=== PATIENT | female | born 1990 | race Caucasian/White ===

== ENCOUNTER 2019-01-13 16:01 | Outpatient (REF) | payer MEDICAID, SELFPAY ==
[2019-01-17 13:33] LABS: Chlamydia Result Negative; GC Result Negative; Specimen Description CERVIX
== END 2019-01-13 16:21 ==
LOC: NCHCN 16:01
PROVIDERS: PCP Family Medicine; Visit Provider Nurse Practitioner Family
DX: Z11.3 Encounter for screening for infections with a predominantly sexual mode of transmission (principal); Z72.89 Other problems related to lifestyle; Z68.42 Body mass index [BMI] 45.0-49.9, adult
CPT/HCPCS: 87491; 87591

== ENCOUNTER 2019-01-14 09:04 | Outpatient (REF) | payer MEDICAID, SELFPAY ==
--- NOTE | 2019-01-13 14:45 | PAPFT_PTH ---
PATIENT: Jackie Moraes LOC: NCN #:[id number] AGE/SX: 28/F ROOM: RE01/14/[address]: Laura Carrasquillo : 1990 BED: DIS: 01/14/2019 SPEC #: [id number] RECD: 01/14/19 12:56 STATUS: ANDREA TRAVIS #: [id number] VANITA: 01/13/19 14:[address]: Laura Carrasquillo DEPT: [facility] Cytology RECD BY: Leilani Lopez ENTERED: 01/14/19 12:57 SP TYPE: PAPFT OTHR DR: Samantha Culver Tissues: 1 - CX/ENDOCX FOR PAP SMEARS Procedures: PAP THIN PREP/UVM Screening Comments: [id number]
== END 2019-01-14 09:24 ==
LOC: NCHCN 09:04
PROVIDERS: PCP Family Medicine; Visit Provider Nurse Practitioner Family
DX: Z12.4 Encounter for screening for malignant neoplasm of cervix (principal); Z00.00 Encounter for general adult medical examination without abnormal findings
CPT/HCPCS: 88142

== ENCOUNTER 2020-02-15 19:13 | Outpatient (REF) | payer MEDICAID, SELFPAY ==
[2020-02-17 10:32] LABS: Syphilis Serology (RPR) Negative (Negative)
[2020-02-17 11:38] LABS: HIV-1/2 Ag & Ab Screen Negative (Negative)
[2020-02-17 11:39] LABS: Hepatitis C Ab w Rflx HCV PCR Negative (Negative)
[2020-02-17 14:51] LABS: Chlamydia Result Negative (Negative); GC Result Negative (Negative)
[2020-02-17 16:47] LABS: Anion Gap 10.1 mmol/L (3-11); BUN 11 mg/dL (7-18); CO2 25.9 mmol/L (21.0-32.0); CREATININE 0.95 mg/dL (0.55-1.02); Calcium 9.4 mg/dL (8.5-10.1); Calculated LDL 143 mg/dL (<100); Chloride 103 mmol/L (98-107); Cholesterol 207 mg/dL (<200); Glucose 82 mg/dL (74-106); HDL Cholesterol 40 mg/dL (40-60); Potassium 4.5 mmol/L (3.5-5.1); Sodium 139 mmol/L (136-145); Triglyceride 122 mg/dL (<150)
== END 2020-02-15 19:33 ==
LOC: NCHCN 19:13
PROVIDERS: PCP Family Medicine; Visit Provider Family Medicine
DX: Z11.3 Encounter for screening for infections with a predominantly sexual mode of transmission (principal); Z11.4 Encounter for screening for human immunodeficiency virus [HIV]; Z11.59 Encounter for screening for other viral diseases; Z68.42 Body mass index [BMI] 45.0-49.9, adult; Z13.220 Encounter for screening for lipoid disorders; Z13.228 Encounter for screening for other metabolic disorders
CPT/HCPCS: 80048; 80061; 86803; 87389; 87491; 87591; 86592

== ENCOUNTER 2020-04-06 21:42 | Outpatient (REF) | payer MEDICAID, SELFPAY ==
[2020-04-06 21:23] LABS: TSH (W/Ref FT4) 0.75 uIU/mL (0.36-3.74)
== END 2020-04-06 22:02 ==
LOC: NCHCN 21:42
PROVIDERS: PCP Family Medicine; Visit Provider Family Medicine
DX: R53.83 Other fatigue (principal); R63.5 Abnormal weight gain
CPT/HCPCS: 84443

== ENCOUNTER 2021-07-15 11:54 | Outpatient (REF) | payer MEDICAID, SELFPAY ==
[2021-07-17 12:45] LABS: COVID-19 RT-PCR UVMMC Result Negative (Negative)
== END 2021-07-15 11:55 | disposition home or self-care (01) ==
LOC: LBN 11:54
PROVIDERS: PCP Family Medicine; Visit Provider Physician Assistant
DX: Z20.822 Contact with and (suspected) exposure to COVID-19 (principal); J02.9 Acute pharyngitis, unspecified
CPT/HCPCS: U0003; 87070

== ENCOUNTER 2021-07-19 18:30 | Outpatient (REF) | payer MEDICAID, SELFPAY ==
[2021-07-21 12:43] LABS: COVID-19 RT-PCR UVMMC Result Negative (Negative)
== END 2021-07-19 18:31 | disposition home or self-care (01) ==
LOC: LBN 18:30
PROVIDERS: PCP Family Medicine; Visit Provider Nurse Practitioner Family
DX: Z20.822 Contact with and (suspected) exposure to COVID-19 (principal); J02.9 Acute pharyngitis, unspecified
CPT/HCPCS: U0003; 87070

== ENCOUNTER 2021-11-26 20:34 | Outpatient (REF) | payer MEDICAID, SELFPAY ==
[2021-11-26 21:35] LABS: Calculated LDL 135 mg/dL (<100); Cholesterol 204 mg/dL (<200); HDL Cholesterol 45 mg/dL (40-60); Triglyceride 122 mg/dL (<150)
== END 2021-11-26 20:35 | disposition home or self-care (01) ==
LOC: LBN 20:34
PROVIDERS: PCP Family Medicine; Visit Provider Psychiatry & Neurology Child & Adolescent Psychiatry
DX: F70 Mild intellectual disabilities (principal); E78.79 Other disorders of bile acid and cholesterol metabolism
CPT/HCPCS: 80061; 83036

== ENCOUNTER 2022-03-04 17:57 | Outpatient (REF) | payer MEDICAID, SELFPAY ==
--- NOTE | 2022-03-04 15:45 | PAPFT_PTH ---
PATIENT: Jackie Moraes LOC: [facility]#:[id number] AGE/SX: 31/F ROOM: RE03/04/[address]: Laura Carrasquillo : 1990 BED: DIS: 03/04/2022 SPEC #: [id number] RECD: 03/04/22 18:08 STATUS: ANDREA REOral #: [id number] VANITA: 03/04/22 15:[address]: Laura Carrasquillo DEPT: [facility] Cytology RECD BY: Leilani Lopez ENTERED: 03/04/22 18:09 SP TYPE: PAPFT OTHR DR: Samantha Culver Tissues: 1 - CX/ENDOCX FOR PAP SMEARS Procedures: PAP THIN PREP/UVM Screening HPV DNA PROBE Comments: [id number]
== END 2022-03-04 17:58 | disposition home or self-care (01) ==
LOC: NCHCN 17:57
PROVIDERS: PCP Family Medicine; Visit Provider Nurse Practitioner Family
DX: Z12.4 Encounter for screening for malignant neoplasm of cervix (principal); Z11.51 Encounter for screening for human papillomavirus (HPV)
CPT/HCPCS: 88142; 87624

== ENCOUNTER → 2022-06-12 03:11 | Outpatient (CLI) | payer MEDICARE, MEDICAID, SELFPAY ==
--- NOTE | 2022-06-12 13:33 | DI.MAMMO_ITS ---
Exam(s) MG MAMMO DIAGNOSTIC BI US BREAST LT LIMITED EXAM: US BREAST LT LIMITED CLINICAL HISTORY: UNSPECIFIED LUMP IN LT BREAST, UPPER INNER QUADRANT, N63.22 TECHNIQUE: Ultrasound performed using standard protocol. COMPARISON: No exams were available for comparison FINDINGS: Mammogram and left breast ultrasound are interpreted in conjunction. Patient reportedly has a palpab le mass of the upper inner quadrant of the right breast. The breasts heterogeneously dense. There is a 3 cm in diameter mass with lobulated border seen mammo graphically. This corresponds to a 3 cm in diameter mass seen on ultrasound which is predominantly h ypoechoic with heterogeneous internal echogenicity and irregular lobulated appearance. There is mild ly increased through transmission posteriorly .. No other mass identified mammographically or on ultrasound. IMPRESSION: Indeterminate 3 cm left breast mass, 12 o'clock position, 4 cm from the nipple. Biopsy recommended. Malignancy not excluded. BI-RADS Cat 4 - Suspicious Abnormality: Biopsy should be considered Breast Density - Category C - Heterogeneously dense DATA REPOSITORY:
== END ==
PROVIDERS: PCP Family Medicine; Visit Provider Family Medicine
DX: Z12.31 Encounter for screening mammogram for malignant neoplasm of breast (principal); R92.8 Other abnormal and inconclusive findings on diagnostic imaging of breast
CPT/HCPCS: 76642; 77062; 77066; G0279

== ENCOUNTER → 2022-06-17 14:31 | Outpatient (BNVA) | payer MEDICARE, MEDICAID, SELFPAY | PROVIDERS: PCP Nurse Practitioner Family; Referring Provider Family Medicine; Visit Provider Surgery | DX: D24.2 Benign neoplasm of left breast (principal); N63.20 Unspecified lump in the left breast, unspecified quadrant | CPT/HCPCS: 10005; 99203 ==

== ENCOUNTER 2022-06-17 15:24 | Outpatient (REF) | payer MEDICARE, MEDICAID, SELFPAY ==
--- NOTE | 2022-06-17 15:15 | BREAST_PTH ---
PATIENT: Jackie Moraes LOC: [facility] U#:[id number] AGE/SX: 31/F ROOM: RE06/17/[address]: Lizzeth Cross MD : 1990 BED: DIS: 06/17/2022 SPEC #: [id number] RECD: 06/17/22 16:27 STATUS: ANDREA REQ #: [id number] VANITA: 06/17/22 15:[address]: Lizzeth Cross DEPT: Surgical Specimen RECD BY: Leilani Lopez ENTERED: 06/17/22 16:28 SP TYPE: Breast OTHR DR: Laura Carrasquillo Tissues: 1 - BREAST BX NEEDLE Procedures: GROSS AND MICRO LEVEL 4 Comments: [id number]
== END 2022-06-17 15:25 | disposition home or self-care (01) ==
LOC: LBN 15:24
PROVIDERS: PCP Nurse Practitioner Family; Visit Provider Surgery
DX: D24.2 Benign neoplasm of left breast (principal)
CPT/HCPCS: 88305

== ENCOUNTER → 2022-06-27 01:05 | Outpatient (CLI) | payer MEDICARE, MEDICAID, SELFPAY ==
--- NOTE | 2022-06-27 | DI.US_ITS ---
Exam(s) US NEEDLE LOCAL BREAST WO RAD EXAM: US NEEDLE LOCAL BREAST WO RAD CLINICAL HISTORY: ULTRASOUND GUIDED BX, LT BREAST MASS. Right Breast. Left Breast. TECHNIQUE: After obtaining informed consent the patient was prepped and draped in the usual manner. Subcutaneous tissues were anaesthetized with Lidocaine 1%. Site: right left and oclock cm mass was identified. Biopsy: Under ultrasound guidance 3 one cm throw core biopsies were successfully obtained through th e mass. The patient tolerated the procedure well and was released 15 minutes post procedure. Complications: None. The patient was advised to return if any signs of bleeding or infection are obs erved. COMPARISON: US US BREAST LT LIMITED from 06/12/2022 MG MG MAMMO DIAGNOSTIC BI from 06/12/2022 FINDINGS: Ultrasound guidance was provided during left breast biopsy of a finding at 12 o'clock position approx imately 4 cm from the nipple. Radiologist was not present during this procedure. IMPRESSION: Left breast ultrasound-guided biopsy as described above.
--- NOTE | 2022-06-27 14:46 | W.PROCNOTE ---
Date of service: 06/27/22 Time of Service: 14:15 Procedure Note Date of procedure: 06/27/22 Procedure: Us guided Left BReast Core needle biopsy Surgeon/Proceduralist/Physician: Lizzeth Cross Procedure Diagnosis: Left Breast mass Procedure Description: Pre-op Dx: left Breast Mass Post-op Dx: same Procedure: US guided left core needle biopsy Surgeon: Myriam Cross MD Anesthesia: Local anesthesia with 1% Lidocaine Blood loss: 2 cc Specimen: Core needle biopsy Complications: no immediate complications Procedure: After informed consent was obtained the patient was placed in a supine position. Us was done of the left Breast and the lesion was localized by the US tech. The skin was cleaned with alcohol and infiltrated with the above local anesthetic. The skin was then prepped. An incision was made with an 11 blade. Using a 14 gauge core needle 2 specimens were removed and placed on telfa and placed in formalin. Under US guidence a titanium clip was placed into the mass. The skin was cleaned and dried and a band aid was applied. The patient tolerated the procedure well and there were no immediate complications.
== END ==
PROVIDERS: PCP Nurse Practitioner Family; Visit Provider Surgery
DX: C50.812 Malignant neoplasm of overlapping sites of left female breast (principal)
CPT/HCPCS: 19083; 76942

== ENCOUNTER 2022-06-27 14:46 | Outpatient (REF) | payer MEDICARE, MEDICAID, SELFPAY ==
--- NOTE | 2022-06-27 14:27 | BREAST_PTH ---
PATIENT: Jackie Moraes LOC: [facility]#:[id number] AGE/SX: 31/F ROOM: RE06/27/[address]: Lizzeth Cross MD : 1990 BED: DIS: 06/27/2022 SPEC #: [id number] RECD: 06/27/22 15:47 STATUS: WILLIAMRosa REQ #: [id number] VANITA: 06/27/22 14:[address]: Lizzeth Cross DEPT: Surgical Specimen RECD BY: Jacqueline Soliz ENTERED: 06/27/22 15:49 SP TYPE: Breast OTHR DR: Laura Carrasquillo Tissues: 1 - BREAST BX NEEDLE Procedures: GROSS AND MICRO LEVEL 4 Her-2 Dual CHANTAL [id number] IPEX ESTROGEN/PROGESTERONE RECEPTOR IPEX STAIN Comments: [id number]
== END 2022-06-27 14:47 | disposition home or self-care (01) ==
LOC: LBN 14:46
PROVIDERS: PCP Nurse Practitioner Family; Visit Provider Surgery
DX: C50.812 Malignant neoplasm of overlapping sites of left female breast (principal)
CPT/HCPCS: 88305; 88360; 88377

== ENCOUNTER → 2022-07-04 14:00 | Outpatient (BNVA) | payer MEDICARE, MEDICAID, SELFPAY | PROVIDERS: PCP Nurse Practitioner Family; Referring Provider Nurse Practitioner Family; Visit Provider Surgery | DX: C50.911 Malignant neoplasm of unspecified site of right female breast (principal) | CPT/HCPCS: 99213 ==

== ENCOUNTER 2022-11-07 07:55 | Emergency (ER) | payer MEDICARE, MEDICAID, SELFPAY ==
--- NOTE | 2022-11-07 07:45 | RT.EKG_ITS ---
APPROVED REPORT Exam: Resting ECG Reason for Exam: Dyspnea Patient Location: E HR:86 bpm ECG Measurements Heart Rate 86 AXIS GA 140 P 39 QRSd 91 QRS 32 QT 371 T 23 QTc 445 Conclusion Sinus rhythm...normal P axis, V-rate 60- 99
[2022-11-07 07:55] VITALS: BP 118/83; PULSE 91; RESP 15; TEMP 36.9; O2SAT 95
--- NOTE | 2022-11-07 08:00 | DI.RAD_ITS ---
Exam(s) XR CHEST 2V PA LATERAL EXAM: XR CHEST 2V PA LATERAL CLINICAL HISTORY: SOB, Cough, Hx of Cancer TECHNIQUE: 2D digital imaging was performed of the chest. Two images were obtained. PA and lateral views were obtained. COMPARISON: No exams were available for comparison FINDINGS: MEDIASTINUM: Normal. HEART: Normal. PULMONARY VASCULATURE: Normal. LUNGS: Clear. PLEURAL SPACE: No pleural effusion or pneumothorax. BONE:Within normal limits for the patient's age. OTHER FINDINGS:The tip of the indwelling central venous catheter is in good position at the junction of the superior vena cava and right atrium. IMPRESSION: No acute pulmonary findings. DATA REPOSITORY: RADIATION DOSE DELIVERED:
--- NOTE | 2022-11-07 08:05 | ED.GENADUL_ITS ---
Discharge Plan Disposition Patient Disposition: Home Condition: Stable Discharge Details Clinical Impression: Acute dyspnea Primary Care Provider: Laura Carrasquillo ED Provider: Cele Vu Home Meds and New Rx's Prescriptions: Continued lorazepam [Ativan] 1 mg tablet 1 mg PO DAILY PRN (Reason: anxiety) Qty: 1 0RF Patient Comments: not taking Rx Instructions: Take 30 minutes before your MRI citalopram 20 mg tablet 20 mg PO DAILY calcium carbonate-vitamin D3 [Calcium 600 with Vitamin D3] 600 mg(1,500mg) - 500 unit capsule PO Patient Comments: not taking quetiapine [Seroquel] 50 mg tablet 50 mg PO QHS L norgest/e.estradiol-e.estrad [Seasonique] 0.15 mg-30 mcg (84)/10 mcg (7) tablets,dose pack,3 month 1 tab PO DAILY Discharge Instructions Instructions: Dyspnea (ED) Additional Instructions: CT x-ray within normal limits. You may continue to take Benadryl 1 or 2 tablets every 6-8 hours as needed for shortness of breath and swelling. You may also take hcwg-jsj-penxysk Pepcid once a day. For the next 5 days. Follow up with primary care provider in 3-5 days. Return to ED sooner if any worsening or concerns. Increase oral fluids. Referrals: Laura Carrasquillo [Primary Care Provider] - 3 days Medical Decision Making 32-year-old female with a past medical history of breast cancer who is on chemotherapy, thalassemia minor presents to the ER with chief complaint of itching, rash shortness of breath and cough. She reports some chest tightness. She reports symptoms began last night. She denies any productive cough, no nausea vomiting diarrhea no fever or chills. Her last chemo treatment was approximately 2 weeks ago. She does report some hand swelling and ixvs-uwpg-pdl-mouth disease. Work-up ordered including CBC CMP troponin, D-dimer proBNP, chest x-ray, Pepcid Benadryl and Solu-Medrol. Differential diagnosis includes but not limited to CAD, PE, pneumonia, allergic reaction, bronchitis 0917: Patient reevaluation, she reports feeling much better and is requesting some food. Speaking in full sentences. 1043: CT WNL, Negative for PE. Patient discharged with instructions to continue taking Benadryl and wnic-ufr-tlvtsmd Pepcid if needed. Strict follow-up with PCP. Discussed return instructions. Patient remained hemodynamically stable alert and oriented throughout the remainder of her stay. This text was generated using [employer] Luckyation system, please disregard any oddities of phrase or misspellings. Medical Records Medical records reviewed: Yes I reviewed the patient's medical records. Lab Data Lab results reviewed: Yes I reviewed the patient's lab results. Labs: Laboratory Tests Range/Units 11/07/22 11/07/22 08:13 08:13 WBC (4.4-10.8) 10^3/uL 9.37 RBC (3.93-5.22) 10^6/uL 5.54 H Hgb (11.2-15.7) g/dL 10.5 L Hct (36.0-46.0) % 33.7 L MCV (80-95) fL 61 L MCH (27.0-33.0) pg 19.0 L MCHC (32.0-36.0) % 31.2 L RDW (11.7-14.6) % 17.5 H Plt Count (130-400) 10^3/uL 196 MPV (8.0-11.0) fL Immature Gran % 2.2 Neutrophils % 59.4 Lymphocytes % 27.6 Monocytes % 9.2 Eosinophils % 1.0 Basophils % 0.6 Nucleated RBC % (0.0-0.3) % 0.0 Absolute Neutrophils (1.2-6.7) 10^3/uL 5.56 Absolute Lymphocytes (1.2-3.4) 10^3/uL 2.59 Absolute Monocytes (0.1-0.8) 10^3/uL 0.86 H Absolute Eosinophils (0.0-0.7) 10^3/uL 0.09 Absolute Basophils (0.0-0.2) 10^3/uL 0.06 RBC Morphology See Below Polychromasia Present Hypochromasia 1+ Poikilocytosis 1+ Anisocytosis 1+ Microcytosis 2+ Sodium (136-145) mmol/L 140 Potassium (3.5-5.1) mmol/L 3.7 Chloride (98-107) mmol/L 105 Carbon Dioxide (21.0-32.0) mmol/L 26.7 Anion Gap (3-11) mmol/L 8.3 BUN (7-18) mg/dL 15 Creatinine (0.55-1.02) mg/dL 0.8 Est GFR (CKD-EPI 2020) (mL/min/1.73m2) 100.33 Glucose (74-106) mg/dL 110 H Calcium (8.5-10.1) mg/dL 9.3 Magnesium (1.8-2.4) mg/dL 1.9 Total Bilirubin (0.2-1.0) mg/dL 0.4 AST (15-37) U/L 52 H ALT (14-59) U/L 106 H Alkaline Phosphatase (46-116) U/L 151 H Troponin I (<or=60) ng/L < 50 NT-Pro-B Natriuret Pep (<300) pg/mL 8 Total Protein (6.4-8.2) g/dL 7.3 Albumin (3.4-5.0) g/dL 3.4 HPI General Mode of arrival: EMS . Date/Time Provider Initiated Documentation: 11/07/22 07:56 . Limitations to Documentation: no limitations . Information obtained by: patient, RN notes reviewed and old records reviewed . HPI Narrative: 32-year-old female with a past medical history of breast cancer who is on chemotherapy, thalassemia minor presents to the ER with chief complaint of itching, rash shortness of breath and cough. She reports some chest tightness. She reports symptoms began last night. She denies any productive cough, no nausea vomiting diarrhea no fever or chills. Her last chemo treatment was approximately 2 weeks ago. She does report some hand swelling and lyhh-tbbu-xpf-mouth disease. She does have a Port-A-Cath to right anterior chest. Denies any other associated symptoms or complaints. She is speaking in full sentences. Lungs are clear to auscultation bilaterally. Related Data Home Medications Medication Instructions Recorded Confirmed L norgest/E estradiol-E estrad 1 tab PO DAILY 02/01/21 11/07/22 0.15 mg-30 mcg (84)/10 mcg(7) tabs,3mos (Seasonique) calcium carbonate 600 mg-vitamin cap PO 02/01/21 07/11/22 D3 12.5 mcg (500 unit) capsule (Calcium 600 with Vitamin D3) citalopram 20 mg tablet 20 mg PO DAILY 02/01/21 11/07/22 quetiapine 50 mg tablet (Seroquel) 50 mg PO QHS 02/01/21 11/07/22 lorazepam 1 mg tablet (Ativan) 1 mg PO DAILY PRN anxiety #1 tab 07/04/22 07/04/22 Previous Rx's Medication Instructions Recorded lorazepam 1 mg tablet (Ativan) 1 mg PO DAILY PRN anxiety #1 tab 07/04/22 Allergies Allergy/AdvReac Type Severity Reaction Status Date / Time No Known Allergies Allergy Verified 11/07/22 08:02 General Stated Complaint: SOB/SuddenOnset HUSEYIN: 3 Review of Systems All systems reviewed & are unremarkable except as noted in HPI and below Cardiovascular Cardiovascular: Reports dyspnea Respiratory Respiratory: Denies chest congestion, Reports cough, Denies hemoptysis, Denies excessive phlegm production, Reports dyspnea, Denies stridor and Denies wheezing Gastrointestinal Gastrointestinal: Denies abdominal pain, Denies diarrhea, Denies nausea and Denies vomiting Integumentary/Breasts Skin/Breast: Reports pruritus Allergic/Immunologic Allergic/Immunologic: Denies wheezing PFSH All Active Problems (Updated 11/07/22 @ 10:44 by Cele Vu NP) Acute dyspnea (Acute) Invasive ductal carcinoma of right breast in female (Acute) Thalassemia minor (Acute) Anxiety and depression (Chronic) BMI 50.0-59.9, adult (Acute) Left breast mass (Acute) Social History Smoking/Tobacco Use Status: Never Smoking risk assessment performed?: Yes Alcohol Intake: never Drug use: Never Substance use type: does not use Caregiver/Support person: Yes Foster care: Yes Household members: significant other and foster family Current gender identity: female Do you feel safe at home: Yes Do you feel safe in your relationship?: Yes Exam Narrative Exam Narrative: Constitutional: Alert and oriented x3. Appears stated age. Obese body habitus. Head: Normocephalic, no trauma. Eyes: Pupils PERRL, Red reflex noted, EOM's intact. Eyelids symmetrical without lesions, discharge, or swelling. ENT: Bilateral TM's WNL, External ear normal to inspection, no mastoid TTP, swelling, or erythema, Nasal turbinates WNL, no nasal discharge. Normal dentition, Posterior pharynx WNL, no exudate. Chest: RRR, Normal S1, S2, distal pulses intact. Resp: Lungs clear to auscultation bilaterally, no wheezes, rales, or rhonchi. Abdomen: Soft, non-distended, Normoactive bowel sounds all 4 quads. Musculoskeletal: Normal gait, 5/5 strength to all four extremities. Skin: Sporadic scattered red raised rash noted. Capillary refill less than 2 sec. Neurologic: Cranial nerves II-XII intact. Alert and oriented x 3. Motor: No deficits noted. Sensory: Intact bilaterally all 4 extremities. Hematologic/Lymphatic: No ecchymosis, no lymphadenopathy. Course Vital Signs Vital signs: Vital Signs Temperature 36.9 C 11/07/22 07:55 Pulse 91 H 11/07/22 07:55 Respiratory Rate 15 11/07/22 07:55 Blood Pressure 118/83 11/07/22 07:55 Pulse Oximetry 95 11/07/22 07:55 Temperature 36.9 C 11/07/22 07:55 Temperature Source Oral 11/07/22 07:55 Pulse 91 H 11/07/22 07:55 Respiratory Rate 15 11/07/22 07:55 Respiratory Effort Normal, Non-Labored, Short of Breath 11/07/22 08:01 Blood Pressure 118/83 11/07/22 07:55 Blood Pressure Position Supine 11/07/22 07:55 Pulse Oximetry 95 11/07/22 07:55 Oxygen Delivery Method Room Air 11/07/22 07:55 Oxygen Flow Rate 0 11/07/22 07:55 Pain Level 0 11/07/22 07:55
[2022-11-07] MEDS: diphenhydrAMINE 25 MG CAP PO (08:24)
[2022-11-07] MEDS: methylPREDNISolone SUCC 125 MG VIAL IVP (08:24)
[2022-11-07] MEDS: Famotidine 20 MG TAB 40 MG PO (08:24)
[2022-11-07] MEDS: Normal Saline 500 ML IV (08:24)
[2022-11-07 08:37] LABS: Abs Immature Grans 0.21 10^3/uL (0.0-0.06); Absolute Basophil Count 0.06 10^3/uL (0.0-0.2); Absolute Eosinophil Count 0.09 10^3/uL (0.0-0.7); Absolute Lymphocyte Count 2.59 10^3/uL (1.2-3.4); Absolute Monocyte Count 0.86 10^3/uL (0.1-0.8); Absolute Neutrophil Count 5.56 10^3/uL (1.2-6.7); Basophils % 0.6; HCT 33.7 % (36.0-46.0); HGB 10.5 g/dL (11.2-15.7); Immature Grans % 2.2; Lymphocytes % 27.6; MCHC 31.2 % (32.0-36.0); MCV 61 fL (80-95); Monocytes % 9.2; Neutrophils % 59.4; Platelet Count 196 10^3/uL (130-400); RBC 5.54 10^6/uL (3.93-5.22); RDW 17.5 % (11.7-14.6); RDW-SD 34.5 fL; WBC 9.37 10^3/uL (4.4-10.8)
[2022-11-07 08:53] LABS: Anisocytosis 1+; Diff Comment Diff Reviewed; Hypochromasia 1+; Microcytosis 2+; Polychromasia Present
[2022-11-07 08:54] LABS: Poikilocytes 1+
[2022-11-07 08:58] LABS: ALT 106 U/L (14-59); AST 52 U/L (15-37); Albumin 3.4 g/dL (3.4-5.0); Alkaline Phosphatase 151 U/L (46-116); Anion Gap 8.3 mmol/L (3-11); BUN 15 mg/dL (7-18); Bilirubin, Total 0.4 mg/dL (0.2-1.0); CO2 26.7 mmol/L (21.0-32.0); CREATININE 0.8 mg/dL (0.55-1.02); Calcium 9.3 mg/dL (8.5-10.1); Chloride 105 mmol/L (98-107); Estimated GFR 100.33 (mL/min/1.73m2); Glucose 110 mg/dL (74-106); Magnesium 1.9 mg/dL (1.8-2.4); NT-proBNP 8 pg/mL (<300); Potassium 3.7 mmol/L (3.5-5.1); Sodium 140 mmol/L (136-145); Total Protein 7.3 g/dL (6.4-8.2); Troponin I < 50 ng/L (<or=60)
[2022-11-07 09:03] VITALS: RESP 18
--- NOTE | 2022-11-07 09:15 | DI.CT_ITS ---
Exam(s) CT CHEST PE CTA EXAM: CT CHEST PE CTA CLINICAL HISTORY: Elevated Dimer, Chest tightness, SOB. TECHNIQUE: Imaging Protocol: Axial CT angiography was performed with multi-slice acquisition and mu lti-planar and/or 3D reconstructions. CONTRAST MATERIAL: Intravenous: Omnipaque 350 contrast volume:100 mL COMPARISON: US US BREAST LT LIMITED from 06/12/2022 CR XR CHEST 2V PA LATERAL from 11/07/2022 FINDINGS: There is poor inspiration and patient motion artifact. This limits examination. Tracheobronchial tree: Patent where visualized. Pulmonary parenchyma: No consolidation or dominant measurable mass. No architectural distortion. Pulmonary Arteries: No evidence of filling defect to suggest pulmonary emboli. Subsegmental pulmonary artery evaluation is limited due to patient motion artifact. Mediastinum and Antonia: No dominant adenopathy or fluid collection. The esophagus is unremarkable. Visualized thyroid gland: Unremarkable. Pleura: No effusion or pneumothorax. Heart: The heart is not dilated. No coronary artery calcifications are seen. No pericardial effusion. There is a normal RV to LV ratio of less than 1. Aorta: Thoracic aorta non-dilated. No evidence of dissection. Upper abdomen: Fatty infiltration of the liver. Tubes, Catheters, and Lines: There is a an indwelling central venous catheter in place. Soft tissues: There is a biopsy clip in a left breast mass. There is a also a clip seen in a left ax illary lymph node. This corresponds to the patient's known history of left breast carcinoma. Bones: Within normal limits for the patient's age. IMPRESSION: 1. No evidence of pulmonary embolism, thoracic aortic dissection or aneurysm. 2. Clip in the left axilla and left breast mass consistent with the patient's known history of breast carcinoma. 3. Findings were discussed with the emergency department at 10:42 a.m. on 11/07/2022. RADIATION DOSE DELIVERED: 449.21mGy.cm Total DLP DATA REPOSITORY: All CT scans at this facility are submitted to the National Radiology Data Registry (NRDR) Dose Index Registry (DIR) with the [employer] (ACR). RADIATION OPTIMIZATION: All CT scans at this facility use at least one of these dose optimization te chniques: automated exposure control; mA and/or kV adjustment per patient size (includes targeted exa ms where dose is matched to clinical indication); or iterative reconstruction.
[2022-11-07 09:20] LABS: D-Dimer 2171 ng/mlFEU (<500)
--- NOTE | 2022-11-07 09:30 | NUR.NOTE ---
pt ambulatory to restroom with a steady gait and no SOB
[2022-11-07] MEDS: Normal Saline - Diluent 50 ML VIAL IJ (10:02)
[2022-11-07 10:48] VITALS: BP 118/76; PULSE 74; RESP 18; O2SAT 97
== END 2022-11-07 10:54 | disposition home or self-care (01) ==
LOC: ER 10:54
PROVIDERS: Emergency Provider Registered Nurse Emergency; PCP Nurse Practitioner Family
DX: R06.00 Dyspnea, unspecified (principal); L29.9 Pruritus, unspecified; R07.89 Other chest pain; M79.89 Other specified soft tissue disorders; B08.4 Enteroviral vesicular stomatitis with exanthem; E66.9 Obesity, unspecified
CPT/HCPCS: 36415; 71275; 80053; 93005; 96361; 96374; 99285; 71046; 83735; 83880; 84484; 85025; 85379; 93010; J2930

== ENCOUNTER 2023-02-04 20:02 | Outpatient (REF) | payer MEDICARE, MEDICAID, SELFPAY | END 2023-02-04 20:03 | disposition home or self-care (01) | LOC: NCHCN 20:02 | PROVIDERS: PCP Nurse Practitioner Family; Visit Provider Nurse Practitioner Family | DX: Z00.00 Encounter for general adult medical examination without abnormal findings (principal) | CPT/HCPCS: 87086; 87480; 87510; 87660 ==

== ENCOUNTER → 2023-08-12 03:27 | Outpatient (CLI) | payer MEDICARE, MEDICAID, SELFPAY ==
--- NOTE | 2023-08-12 | DI.CT_ITS ---
Exam(s) CT CHEST/ABD/PEL W EXAM: CT CHEST/ABD/PEL W CLINICAL HISTORY: LUNG NODULE R91.1 BREAST CANCER C50.212 Z17.0. TECHNIQUE: Imaging Protocol: Axial computed tomography images with coronal and sagittal reformatted images were created and reviewed CONTRAST MATERIAL: Intravenous: Omnipaque 350 Contrast volume:100 ml Oral: Yes. Oral contrast was administered for bowel opacification COMPARISON: CT CT CHEST PE CTA from 11/07/2022 FINDINGS: CHEST: Chest wall: There has been interval left breast surgery. There is skin thickening and mild edema whi ch is most probably related to surgery and radiation changes. Right-sided Port-A-Cath distal tip is in the right atrium. LUNGS: There is subpleural infiltrate in the left upper lobe anteriorly, most probably related to pos t left mastectomy radiation changes/radiation pneumonitis. There is no pleural effusion. There are no metastatic appearing lung nodules nor other areas of infiltrate. No findings in the trachea and m ainstem bronchi.. MEDIASTINUM: There is no hilar nor mediastinal adenopathy. Surgical clips noted in the left axilla. No axillary adenopathy. CARDIAC: Heart size is normal. There is no pericardial effusion.Caliber of the thoracic aorta is wit hin normal limits. OSSEOUS: No significant osseous lesions.No fractures.. ABDOMEN: There is no ascites. LIVER: Somewhat hypodense implying steatosis but there are no discrete focal hepatic lesions in the l iver. No dilated intrahepatic ducts GALLBLADDER/BILIARY: No obvious gallbladder pathology. CBD is not dilated. PANCREAS: No evidence of pancreatic mass nor dilatation of the pancreatic duct. SPLEEN: Spleen is not enlarged. There are no intrasplenic lesions. Splenic and portal veins are hampton nt. ADRENALS: There are no significant adrenal masses. KIDNEYS: No calculi nor hydronephrosis. No solid renal masses. Small benign cyst in the anterior paul ex left kidney noted which measures 9 x 6 mm. Does not require follow-up. ABDOMINAL AORTA: Abdominal aorta is not enlarged. LYMPH NODES: There is no retroperitoneal nor paraaortic adenopathy. ABDOMINAL WALL: No evidence of significant anterior abdominal wall nor inguinal hernia. GI: There is no evidence of bowel obstruction. PELVIS: LYMPH NODES: There is no intrapelvic nor inguinal adenopathy. GI: No evidence of appendicitis.No evidence of sigmoid diverticulitis. URINARY BLADDER: No calculi nor masses evident REPRODUCTIVE: Uterus and adnexal regions unremarkable. No adnexal masses. No free fluid. OSSEOUS: No significant osseous lesions. No fractures. IMPRESSION: 1. There is subpleural infiltrate in the anterior segment of the left upper lobe consistent with radi ation pneumonitis in this patient has had recent left breast lumpectomy and radiation therapy. 2. There are no metastatic appearing lung nodules, pleural effusions, nor intrathoracic adenopathy. 3. No evidence of metastatic disease in the abdomen and pelvis. 4. No ovarian masses nor free fluid. RADIATION DOSE DELIVERED: Total DLP DATA REPOSITORY: All CT scans at this facility are submitted to the National Radiology Data Registry (NRDR) Dose Index Registry (DIR) with the [employer] (ACR). RADIATION OPTIMIZATION: All CT scans at this facility use at least one of these dose optimization te chniques: automated exposure control; mA and/or kV adjustment per patient size (includes targeted exa ms where dose is matched to clinical indication); or iterative reconstruction.
--- OUTSIDE RECORDS SUMMARY | 2023-08-12 03:33 | XMS_ITS | Continuity of Care Document ---
Author Name Unknown Organization [facility] Address [address] [place] [id number] Care Team Providers Care Embedded Processor Name Role Phone FRANCO GUZMAN Primary Care Physician [phone] Encounter LTTL_NE FIN NBR [id number] Date(s): 07/10/22 - 07/10/[address] [phone]- [phone] Discharge Disposition: Home or Self Care Attending Physician: JOCELYN DORADO V Admitting Physician: JOCELYN DORADO V Patient Care team information Personnel Name: FRANCO GUZMAN Address: Address: [address] [place] [phone]
[2023-08-12] MEDS: Barium Sulfate 2% W/V-Berry Smoothie 450 ML BTL PO (09:30)
[2023-08-12] MEDS: Barium Sulfate 2% W/V-Creamy Vanilla Smoothie 450 ML BTL PO (09:31)
[2023-08-12] MEDS: Normal Saline Flush 10 ML SYR IVP (11:21)
[2023-08-12] MEDS: Normal Saline - Diluent 50 ML VIAL IJ (11:22)
[2023-08-12] MEDS: Omnipaque 350 MG/ML 500 ML BTL-Imaging package 100 ML IJ (11:22)
== END ==
PROVIDERS: PCP Nurse Practitioner Family; Visit Provider Internal Medicine Hematology & Oncology
DX: R91.1 Solitary pulmonary nodule (principal); C50.212 Malignant neoplasm of upper-inner quadrant of left female breast; Z17.0 Estrogen receptor positive status [ER+]
CPT/HCPCS: 36591; 74177; 80053; 71260; 85025; J1642

== ENCOUNTER 2023-08-18 01:47 | Outpatient (RCR) | payer MEDICARE, MEDICAID, SELFPAY ==
[2023-08-12 09:40] LABS: ALT 51 U/L (14-59); AST 29 U/L (15-37); Albumin 3.4 g/dL (3.4-5.0); Alkaline Phosphatase 165 U/L (46-116); Anion Gap 5.4 mmol/L (3-11); BUN 14 mg/dL (7-18); Bilirubin, Total 0.4 mg/dL (0.2-1.0); CO2 29.6 mmol/L (21.0-32.0); CREATININE 0.8 mg/dL (0.55-1.02); Calcium 9.2 mg/dL (8.5-10.1); Chloride 105 mmol/L (98-107); Estimated GFR 99.71 (mL/min/1.73m2); Glucose 98 mg/dL (74-106); Potassium 3.6 mmol/L (3.5-5.1); Sodium 140 mmol/L (136-145); Total Protein 7.8 g/dL (6.4-8.2)
[2023-08-12] MEDS: Heparin 500 UNITS/5 ML SYRINGE IV (12:20)
[2023-08-12] MEDS: Normal Saline Flush 10 ML SYR IVP (12:20)
[2023-08-18] MEDS: Normal Saline Flush 10 ML SYR IVP (11:39)
[2023-08-18 11:50] LABS: Abs Immature Grans 0.03 10^3/uL (0.0-0.06); Absolute Basophil Count 0.07 10^3/uL (0.0-0.2); Absolute Eosinophil Count 0.25 10^3/uL (0.0-0.7); Absolute Lymphocyte Count 1.99 10^3/uL (1.2-3.4); Absolute Monocyte Count 0.48 10^3/uL (0.1-0.8); Absolute Neutrophil Count 4.39 10^3/uL (1.2-6.7); Eosinophils % 3.5; HCT 37.8 % (36.0-46.0); HGB 11.4 g/dL (11.2-15.7); Immature Grans % 0.4; Lymphocytes % 27.6; MCH 19.3 pg (27.0-33.0); MCHC 30.2 % (32.0-36.0); MCV 64 fL (80-95); MPV 9.9 fL (8.0-11.0); Monocytes % 6.7; Neutrophils % 60.8; Platelet Count 319 10^3/uL (130-400); RDW 17.1 % (11.7-14.6); RDW-SD 37.4 fL; WBC 7.21 10^3/uL (4.4-10.8)
[2023-08-18 12:08] LABS: Diff Comment RBC Morph Reviewed; Microcytosis 2+
[2023-08-18 12:09] LABS: ALT 90 U/L (14-59); AST 57 U/L (15-37); Albumin 3.6 g/dL (3.4-5.0); Alkaline Phosphatase 174 U/L (46-116); Anion Gap 7.6 mmol/L (3-11); BUN 13 mg/dL (7-18); Bilirubin, Total 0.3 mg/dL (0.2-1.0); CO2 29.4 mmol/L (21.0-32.0); CREATININE 0.8 mg/dL (0.55-1.02); Calcium 9.5 mg/dL (8.5-10.1); Chloride 104 mmol/L (98-107); Estimated GFR 99.71 (mL/min/1.73m2); Glucose 104 mg/dL (74-106); Hypochromasia 1+; Potassium 3.8 mmol/L (3.5-5.1); Sodium 141 mmol/L (136-145); Total Protein 8.3 g/dL (6.4-8.2)
== END 2023-08-23 23:59 | disposition home or self-care (01) ==
LOC: INF 01:47
PROVIDERS: Physician Assistant Medical; PCP Nurse Practitioner Family; Visit Provider Internal Medicine Hematology & Oncology
DX: C50.212 Malignant neoplasm of upper-inner quadrant of left female breast (principal); Z17.0 Estrogen receptor positive status [ER+]; Z45.2 Encounter for adjustment and management of vascular access device
CPT/HCPCS: 36591; 80053; 85025; J1642

== ENCOUNTER 2023-09-08 03:33 | Outpatient (RCR) | payer MEDICARE, MEDICAID, SELFPAY ==
[2023-09-08] MEDS: Normal Saline Flush 10 ML SYR IVP (09:19)
[2023-09-08 09:54] LABS: Abs Immature Grans 0.02 10^3/uL (0.0-0.06); Absolute Basophil Count 0.04 10^3/uL (0.0-0.2); Absolute Eosinophil Count 0.31 10^3/uL (0.0-0.7); Absolute Lymphocyte Count 1.69 10^3/uL (1.2-3.4); Absolute Neutrophil Count 4.42 10^3/uL (1.2-6.7); Basophils % 0.6; Eosinophils % 4.5; HCT 35.5 % (36.0-46.0); HGB 10.8 g/dL (11.2-15.7); Immature Grans % 0.3; Lymphocytes % 24.6; MCH 19.4 pg (27.0-33.0); MCHC 30.4 % (32.0-36.0); Monocytes % 5.8; Neutrophils % 64.2; Platelet Count 276 10^3/uL (130-400); RBC 5.57 10^6/uL (3.93-5.22); RDW 16.5 % (11.7-14.6); WBC 6.88 10^3/uL (4.4-10.8)
[2023-09-08 09:58] LABS: MCV 64 fL (80-95)
[2023-09-08 10:15] LABS: Diff Comment Diff Reviewed; Microcytosis 2+
[2023-09-08 10:16] LABS: ALT 47 U/L (14-59); AST 30 U/L (15-37); Albumin 3.7 g/dL (3.4-5.0); Alkaline Phosphatase 165 U/L (46-116); Anion Gap 11.2 mmol/L (3-11); BUN 12 mg/dL (7-18); Bilirubin, Total 0.4 mg/dL (0.2-1.0); CO2 26.8 mmol/L (21.0-32.0); CREATININE 0.9 mg/dL (0.55-1.02); Calcium 9.6 mg/dL (8.5-10.1); Chloride 103 mmol/L (98-107); Estimated GFR 86.57 (mL/min/1.73m2); Glucose 130 mg/dL (74-106); Potassium 3.6 mmol/L (3.5-5.1); Sodium 141 mmol/L (136-145); Total Protein 8.1 g/dL (6.4-8.2)
[2023-09-08 18:35] LABS: Estradiol <12 pg/mL (See Note)
[2023-09-08 18:54] LABS: FSH 6.9 mIU/mL (See Note)
== END 2023-09-23 23:59 | disposition home or self-care (01) ==
LOC: INF 03:33
PROVIDERS: PCP Nurse Practitioner Family; Visit Provider Internal Medicine Hematology & Oncology
DX: C50.212 Malignant neoplasm of upper-inner quadrant of left female breast (principal); Z17.0 Estrogen receptor positive status [ER+]; Z79.899 Other long term (current) drug therapy; Z45.2 Encounter for adjustment and management of vascular access device
CPT/HCPCS: 36591; 80053; 82670; 83001; 85025

== ENCOUNTER → 2023-09-17 03:07 | Outpatient (CLI) | payer MEDICARE, SELFPAY ==
--- NOTE | 2023-09-17 | DI.DEXA_ITS ---
Exam(s) XR DEXA BONE DENSITY W/WO ROGELIO EXAM: XR DEXA BONE DENSITY W/WO ROGELIO CLINICAL HISTORY: [facility] MED USE Z79.811 BREAST CANCER C50.212 Z17.0 BASELINE TECHNIQUE: COMPARISON: No exams were available for comparison FINDINGS: Lateral Spine Image: Unremarkable. No compression deformities identified. Left hip: Total T-Score: 0.7 Total Z-Score: 0.8 T- and Z-scores: Within normal limits. Lumbar Spine: Total T-Score: -1.6 Total Z-Score: -1.6 T- and Z-scores: Findings are consistent with osteopenia. IMPRESSION: No evidence of osteoporosis.
== END ==
PROVIDERS: PCP Nurse Practitioner Family; Visit Provider Nurse Practitioner Family
DX: Z13.820 Encounter for screening for osteoporosis (principal); C50.212 Malignant neoplasm of upper-inner quadrant of left female breast; Z79.811 Long term (current) use of aromatase inhibitors
CPT/HCPCS: 77080

== ENCOUNTER 2023-09-29 03:36 | Outpatient (RCR) | payer MEDICARE, MEDICAID, SELFPAY ==
[2023-09-29 11:29] LABS: Abs Immature Grans 0.02 10^3/uL (0.0-0.06); Absolute Basophil Count 0.06 10^3/uL (0.0-0.2); Absolute Eosinophil Count 0.23 10^3/uL (0.0-0.7); Absolute Lymphocyte Count 1.82 10^3/uL (1.2-3.4); Absolute Monocyte Count 0.38 10^3/uL (0.1-0.8); Absolute Neutrophil Count 4.68 10^3/uL (1.2-6.7); Basophils % 0.8; Eosinophils % 3.2; HCT 35.8 % (36.0-46.0); HGB 11.2 g/dL (11.2-15.7); Immature Grans % 0.3; Lymphocytes % 25.3; MCH 19.7 pg (27.0-33.0); MCHC 31.3 % (32.0-36.0); MCV 63 fL (80-95); MPV 10.5 fL (8.0-11.0); Monocytes % 5.3; Neutrophils % 65.1; Platelet Count 277 10^3/uL (130-400); RBC 5.68 10^6/uL (3.93-5.22); RDW 16.3 % (11.7-14.6); WBC 7.19 10^3/uL (4.4-10.8)
[2023-09-29 11:47] LABS: ALT 48 U/L (14-59); AST 23 U/L (15-37); Albumin 3.5 g/dL (3.4-5.0); Alkaline Phosphatase 167 U/L (46-116); Anion Gap 9.8 mmol/L (3-11); BUN 15 mg/dL (7-18); Bilirubin, Total 0.4 mg/dL (0.2-1.0); CO2 27.2 mmol/L (21.0-32.0); CREATININE 0.7 mg/dL (0.55-1.02); Calcium 9.4 mg/dL (8.5-10.1); Chloride 105 mmol/L (98-107); Estimated GFR 117.04 (mL/min/1.73m2); Glucose 109 mg/dL (74-106); Potassium 3.8 mmol/L (3.5-5.1); Sodium 142 mmol/L (136-145)
[2023-09-29] MEDS: Normal Saline Flush 10 ML SYR IVP (13:25)
[2023-09-29 19:00] LABS: Estradiol <12 pg/mL (See Note)
== END 2023-10-22 23:59 | disposition home or self-care (01) ==
LOC: INF 03:36
PROVIDERS: PCP Nurse Practitioner Family; Visit Provider Internal Medicine Hematology & Oncology
DX: C50.212 Malignant neoplasm of upper-inner quadrant of left female breast (principal); Z17.0 Estrogen receptor positive status [ER+]; Z79.899 Other long term (current) drug therapy; Z45.2 Encounter for adjustment and management of vascular access device
CPT/HCPCS: 36591; 80053; 82670; 83001; 85025

== ENCOUNTER 2023-10-26 16:18 | Outpatient (REF) | payer MEDICARE, SELFPAY | END 2023-10-26 16:19 | disposition home or self-care (01) | LOC: LBN 16:18 | PROVIDERS: PCP Nurse Practitioner Family; Visit Provider Nurse Practitioner Family | DX: L98.8 Other specified disorders of the skin and subcutaneous tissue (principal) | CPT/HCPCS: 87077; 87070; 87186; 87205 ==

== ENCOUNTER 2023-12-01 04:29 | Outpatient (RCR) | payer MEDICARE, MEDICAID, SELFPAY ==
[2023-12-01] MEDS: Normal Saline Flush 10 ML SYR IVP (10:20)
[2023-12-01 10:30] LABS: Abs Immature Grans 0.02 10^3/uL (0.0-0.06); Absolute Basophil Count 0.05 10^3/uL (0.0-0.2); Absolute Eosinophil Count 0.24 10^3/uL (0.0-0.7); Absolute Lymphocyte Count 1.74 10^3/uL (1.2-3.4); Absolute Monocyte Count 0.39 10^3/uL (0.1-0.8); Absolute Neutrophil Count 4.82 10^3/uL (1.2-6.7); Basophils % 0.7; Eosinophils % 3.3; HCT 37.1 % (36.0-46.0); HGB 11.2 g/dL (11.2-15.7); Immature Grans % 0.3; MCH 19.3 pg (27.0-33.0); MCHC 30.2 % (32.0-36.0); MPV 10.2 fL (8.0-11.0); Monocytes % 5.4; Neutrophils % 66.3; Platelet Count 295 10^3/uL (130-400); RDW-SD 37.6 fL; WBC 7.26 10^3/uL (4.4-10.8)
[2023-12-01 10:31] LABS: MCV 64 fL (80-95)
[2023-12-01 10:46] LABS: ALT 37 U/L (14-59); AST 16 U/L (15-37); Albumin 3.4 g/dL (3.4-5.0); Alkaline Phosphatase 165 U/L (46-116); Anion Gap 8.8 mmol/L (3-11); BUN 13 mg/dL (7-18); Bilirubin, Total 0.4 mg/dL (0.2-1.0); CO2 27.2 mmol/L (21.0-32.0); CREATININE 0.7 mg/dL (0.55-1.02); Calcium 9.1 mg/dL (8.5-10.1); Chloride 108 mmol/L (98-107); Estimated GFR 117.04 (mL/min/1.73m2); Glucose 103 mg/dL (74-106); Potassium 3.8 mmol/L (3.5-5.1); Sodium 144 mmol/L (136-145); Total Protein 7.7 g/dL (6.4-8.2)
[2023-12-01 18:32] LABS: FSH 5.3 mIU/mL (See Note)
[2023-12-01 19:06] LABS: Estradiol <12 pg/mL (See Note)
== END 2023-12-22 23:59 | disposition home or self-care (01) ==
LOC: INF 04:29
PROVIDERS: PCP Nurse Practitioner Family; Visit Provider Internal Medicine Hematology & Oncology
DX: C50.212 Malignant neoplasm of upper-inner quadrant of left female breast (principal); Z17.0 Estrogen receptor positive status [ER+]; Z79.899 Other long term (current) drug therapy; Z45.2 Encounter for adjustment and management of vascular access device
CPT/HCPCS: 36591; 80053; 82670; 83001; 85025

== ENCOUNTER 2024-01-11 05:07 | Emergency (ER) | payer MEDICARE, MEDICAID, SELFPAY ==
[2024-01-11 05:10] VITALS: BP 160/100; PULSE 68; RESP 16; TEMP 36.2; O2SAT 99
--- NOTE | 2024-01-11 05:44 | W.ED.GENAD ---
Discharge Plan Disposition Patient Disposition: Home Condition: Good Discharge Details Clinical Impression: Allergic reaction Primary Care Provider: Hazel Quigley ED Provider: Aissatou Walton Home Meds and New Rx's Prescriptions: Continued anastrozole 1 mg tablet 1 mg PO DAILY mupirocin 2 % ointment 1 applic topical TID Qty: 15 0RF Rx Instructions: apply twice daily for 7 days citalopram 20 mg tablet 20 mg PO DAILY calcium carbonate-vitamin D3 [Calcium 600 with Vitamin D3] 600 mg(1,500mg) -500 unit capsule 1 cap PO DAILY Patient Comments: not taking quetiapine [Seroquel] 50 mg tablet 50 mg PO QHS oxybutynin chloride 5 mg tablet extended release 24hr 5 mg PO DAILY Patient Comments: TAKE ONE TABLET BY MOUTH EVERY MORNING Discharge Instructions Instructions: General Allergic Reaction (ED) Additional Instructions: Benadryl over the counter every 4-6 hours for symptoms. Avoid using that nail [facility]. Call your primary care doctor today to schedule an appointment within one week to followup on your visit here. Return to the emergency department for new or worsening symptoms. Referrals: Hazel Quigley [Primary Care Provider] - [facility] Mode of arrival: ambulatory. Date/Time Provider Initiated Documentation: 01/11/24 05:12. Limitations to Documentation: no limitations. Information obtained by: patient. HPI Narrative: 33yo F with hx of breast cancer s/p chemo and radiation now in remission presenting with concern for allergic reaction. Used gel fingernail [facility] on her hands on Thursday, subsequently had itching and irritation around her cuticles. Removed [facility] to the best of her ability. Thursday noted swelling in both hands, continued itching. Took benadyrl twice with good effect. At [place] point was biting her nails and thinks she got some of the residual nail [facility] in her mouth, after that felt that her lips were getting somewhat swollen. No difficulty breathing or difficulty with secretions. No chest pain, shortness of breath, or wheezing at any point. No nausea, vomiting, diarrhea, or abdominal pain. No hives. She is otherwise in her usual state of health. Related Data Home Medications Medication Instructions Recorded Confirmed calcium carbonate 600 mg-vitamin 1 cap PO DAILY 02/01/21 01/11/24 D3 12.5 mcg (500 unit) capsule (Calcium 600 with Vitamin D3) citalopram 20 mg tablet 20 mg PO DAILY 02/01/21 01/11/24 quetiapine 50 mg tablet (Seroquel) 50 mg PO QHS 02/01/21 01/11/24 anastrozole 1 mg tablet 1 mg PO DAILY 10/20/23 01/11/24 mupirocin 2 % topical ointment 1 applic topical TID #15 grams 10/26/23 01/11/24 oxybutynin chloride 5 mg 5 mg PO DAILY 01/11/24 01/11/24 tablet,extended release 24 hr Previous Rx's Medication Instructions Recorded mupirocin 2 % topical ointment 1 applic topical TID #15 grams 10/26/23 Allergies Allergy/AdvReac Type Severity Reaction Status Date / Time docetaxel Allergy Other (See Unverified 01/11/24 05:17 Comment) General Stated Complaint: Allergic HUSEYIN: 4 Review of Systems Narrative: see HPI Exam Narrative Exam Narrative: General: Alert, well appearing, well nourished, in no acute distress. Head: Normocephalic, atraumatic Neck: Trachea midline, ?Neck supple. ENT: ?MMM.? No oropharygeal lesions or exudate. No evident lip or intraoral swelling. No difficulty with secretions. Cardiac: ?RRR, no murmurs appreciated Resp: No respiratory distress. CTAB. Abd: ?Soft, non-distended, nontender : ?No suprapubic tenderness. Extremities: ?No deformities.? No peripheral edema. Skin: No rash on hands, palms, or arms. No rash on legs. No rash on face. Neurologic: GCS 15. ? Moves all extremities freely against gravity Course Vital Signs Vital signs: Vital Signs Temperature 36.2 C L 01/11/24 05:10 Pulse 68 01/11/24 05:10 Respiratory Rate 16 01/11/24 05:10 Blood Pressure 160/100 H 01/11/24 05:10 Pulse Oximetry 99 01/11/24 05:10 Temperature 36.2 C L 01/11/24 05:10 Temperature Source Temporal Artery Scan 01/11/24 05:10 Pulse 68 01/11/24 05:10 Respiratory Rate 16 01/11/24 05:10 Respiratory Effort Normal, Non-Labored 01/11/24 05:21 Respiratory Pattern Normal 01/11/24 05:21 Blood Pressure 160/100 H 01/11/24 05:10 Blood Pressure Position Sitting 01/11/24 05:10 Pulse Oximetry 99 01/11/24 05:10 Oxygen Delivery Method Room Air 01/11/24 05:10 Oxygen Flow Rate 0 01/11/24 05:10 Medical Decision Making 33yo F with hx of breast cancer s/p chemo and radiation now in remission presenting with concern for allergic reaction. Used gel fingernail [facility] helenian on her hands on Thursday, subsequently had itching and irritation around her cuticles, and yesterday bit her fingernails and subsequently noted some lip swelling. Symptoms improved with Benadryl. Hypertensive on arrival, vital signs otherwise reassuring. No respiratory distress. No indication of anaphylaxis on exam, would not treat with epi pen. No significant hand swelling on exam, able to remove ring easily. Subjectively pruritic though no skin findings on exam; will give benadryl and pepcid here, advise symptomatic treatment at home. Discharged home; discharge instructions and return precautions were reviewed with patient who verbalized understanding. All questions were answered and she is in full agreement with the plan. Quality:SDOH Health Related Social Needs: No Data to Display PFSH All Active Problems (Updated 01/11/24 @ 05:44 by Aissatou Walton MD) Allergic reaction (Acute) Atrophic vaginitis (Acute) Thalassemia minor (Acute) Anxiety and depression (Chronic) BMI 50.0-59.9, adult (Acute) Medical History Invasive ductal carcinoma of left breast in female Surgical History H/O breast surgery Social History Smoking/Tobacco Use Status: Never Smoking risk assessment performed?: Yes Alcohol Intake: never Drug use: Never Substance use type: does not use Caregiver/Support person: Yes Foster care: Yes Household members: significant other and foster family Current gender identity: female Do you feel safe at home: Yes Do you feel safe in your relationship?: Yes
[2024-01-11 05:52] VITALS: RESP 16
[2024-01-11] MEDS: Famotidine 20 MG TAB 40 MG PO (05:52)
[2024-01-11] MEDS: diphenhydrAMINE 25 MG CAP 50 MG PO (05:52)
== END 2024-01-11 05:53 | disposition home or self-care (01) ==
LOC: ER 05:56
PROVIDERS: Emergency Provider Student in an Organized Health Care Education/Training Program; PCP Nurse Practitioner Family
DX: L29.8 Other pruritus (principal); T78.40XA Allergy, unspecified, initial encounter
CPT/HCPCS: 99283

== ENCOUNTER 2024-02-23 17:29 | Outpatient (CLI) | payer MEDICARE, MEDICAID, SELFPAY ==
[2024-02-23 15:13] LABS: Abs Immature Grans 0.05 10^3/uL (0.0-0.06); Absolute Basophil Count 0.07 10^3/uL (0.0-0.2); Absolute Eosinophil Count 0.33 10^3/uL (0.0-0.7); Absolute Lymphocyte Count 2.92 10^3/uL (1.2-3.4); Absolute Monocyte Count 0.66 10^3/uL (0.1-0.8); Absolute Neutrophil Count 6.71 10^3/uL (1.2-6.7); Basophils % 0.7 %; Eosinophils % 3.1 %; HCT 38.7 % (36.0-46.0); HGB 11.8 g/dL (11.2-15.7); Immature Grans % 0.5 %; Lymphocytes % 27.2 %; MCH 19.6 pg (27.0-33.0); MCHC 30.5 % (32.0-36.0); MCV 64 fL (80-95); Monocytes % 6.1 %; Neutrophils % 62.4 %; Platelet Count 317 10^3/uL (130-400); RBC 6.03 10^6/uL (3.93-5.22); RDW-SD 36.4 fL; WBC 10.74 10^3/uL (4.4-10.8)
[2024-02-23 15:31] LABS: Diff Comment RBC Morph Reviewed; Hypochromasia 2+; Microcytosis 2+
[2024-02-23 15:33] LABS: ALT 57 U/L (14-59); AST 31 U/L (15-37); Albumin 3.8 g/dL (3.4-5.0); Alkaline Phosphatase 181 U/L (46-116); Anion Gap 10.5 mmol/L (3-11); BUN 13 mg/dL (7-18); Bilirubin, Total 0.32 mg/dL (0.2-1.0); CO2 27.5 mmol/L (21.0-32.0); CREATININE 0.8 mg/dL (0.55-1.02); Chloride 104 mmol/L (98-107); Estimated GFR 99.71 (mL/min/1.73m2); Glucose 104 mg/dL (74-106); Potassium 3.7 mmol/L (3.5-5.1); Sodium 142 mmol/L (136-145); Total Protein 8.3 g/dL (6.4-8.2)
== END 2024-02-23 17:30 | disposition home or self-care (01) ==
LOC: LBO 17:30
PROVIDERS: Visit Provider Internal Medicine Hematology & Oncology
DX: Z79.899 Other long term (current) drug therapy (principal); C50.212 Malignant neoplasm of upper-inner quadrant of left female breast; Z17.0 Estrogen receptor positive status [ER+]; Z79.811 Long term (current) use of aromatase inhibitors
CPT/HCPCS: 36415; 80053; 85025

== ENCOUNTER 2024-03-25 18:51 | Emergency (ER) | payer MEDICARE, MEDICAID, SELFPAY ==
[2024-03-25 20:58] VITALS: BP 143/109; PULSE 90; RESP 14; TEMP 37.1; O2SAT 98
--- NOTE | 2024-03-25 21:38 | ED.GENADUL_ITS ---
Discharge Plan Disposition Patient Disposition: Home Condition: Good Discharge Details Clinical Impression: Cat bite, Cellulitis Primary Care Provider: Unknown,Unknown ED Provider: Aissatou Walton Home Meds and New Rx's Prescriptions: Continued anastrozole 1 mg tablet 1 mg PO DAILY citalopram 10 mg tablet 15 mg PO DAILY amoxicillin-pot clavulanate 875-125 mg tablet 1 tab PO BID Qty: 20 0RF calcium carbonate-vitamin D3 [Calcium 600 with Vitamin D3] 600 mg(1,500mg) - 500 unit capsule 1 cap PO DAILY Patient Comments: not taking quetiapine [Seroquel] 50 mg tablet 50 mg PO QHS oxybutynin chloride 5 mg tablet extended release 24hr 5 mg PO DAILY Patient Comments: TAKE ONE TABLET BY MOUTH EVERY MORNING Discharge Instructions Instructions: Cellulitis (Skin Infection), Adult ED, Animal Bites ED Additional Instructions: Tylenol and ibuprofen over the counter for pain; follow the directions on the lukasz ttle. Wrist splint for comfort. Continue your antibiotics. Your symptoms should start to improve in about 24 hours. If your symptoms are worsening tomorrow, please return to the emergency department. Hand infections can be very serious and lead to permanent disability if they are not treated immediately. Otherwise call your primary care doctor on Thursday to schedule an appointment to be seen Thursday or Thursday to followup on your visit here. Discharge Data Discharge Date/Time-TO BE ENTERED AT DEPARTURE: 03/25/24 22:00 HPI General Mode of arrival: ambulatory . Date/Time Provider Initiated Documentation: 03/25/24 19:50 . Limitations to Documentation: no limitations . Information obtained by: patient . HPI Narrative: 33yo F presenting with left hand swelling after being bitten/scratched by her cat yesterday evening. Cat has been vaccinated for rabies. This morning woke up with some swelling to her left hand; went to and was prescribed amoxicillin which she started this morning. Swelling has continued to worsen slightly throughout the day. Systemically well wtih no fevers, chills, n[place], or vomiting. Presents to the ED for increasing pain and swelling. Pain is worse with movement. She had declined splint at urgent care earlier and regrets this. Otherwise in her usual state of health. Related Data Home Medications ?Medication ?Instructions ?Recorded ?Confirmed calcium carbonate 600 mg-vitamin 1 cap PO DAILY 02/01/21 03/25/24 D3 12.5 mcg (500 unit) capsule (Calcium 600 with Vitamin D3) quetiapine 50 mg tablet (Seroquel) 50 mg PO QHS 02/01/21 03/25/24 anastrozole 1 mg tablet 1 mg PO DAILY 10/20/23 03/25/24 oxybutynin chloride 5 mg 5 mg PO DAILY 01/11/24 03/25/24 tablet,extended release 24 hr amoxicillin 875 mg-potassium 1 tab PO BID #20 tabs 03/25/24 03/25/24 clavulanate 125 mg tablet citalopram 10 mg tablet 15 mg PO DAILY 03/25/24 03/25/24 Previous Rx's ?Medication ?Instructions ?Recorded amoxicillin 875 mg-potassium 1 tab PO BID #20 tabs 03/25/24 clavulanate 125 mg tablet Allergies Allergy/AdvReac Type Severity Reaction Status Date / Time docetaxel Allergy Other (See Verified 03/25/24 21:03 Comment) General Stated Complaint: AnimalBite HUSEYIN: 4 Review of Systems Narrative: see HPI Exam Narrative Exam Narrative: General: Alert, well appearing, well nourished, in no acute distress. Head: Normocephalic, atraumatic Neck: Trachea midline, ?Neck supple. Cardiac: ?No cyanosis. Resp: No respiratory distress. Speaking in full sentences. . Extremities: ?Right hand wtih scattered abrasions/scratches on dorsal aspect. Left hand also with scattered abrasions on dorsal aspect, swollen on hand and proximal fingers. No significant tenderness over flexor sheath, able to flex and extend fingers. Sensation and capillary refill intact throughout. Neurologic: GCS 15. ? Moves all extremities freely against gravity Course Vital Signs Vital signs: Vital Signs Temperature 37.1 C 03/25/24 20:58 Pulse 90 03/25/24 20:58 Respiratory Rate 14 03/25/24 20:58 Blood Pressure 143/109 H 03/25/24 20:58 Pulse Oximetry 98 03/25/24 20:58 Temperature 37.1 C 03/25/24 20:58 Temperature Source Temporal Artery Scan 03/25/24 20:58 Pulse 90 03/25/24 20:58 Respiratory Rate 14 03/25/24 20:58 Blood Pressure 143/109 H 03/25/24 20:58 Pulse Oximetry 98 03/25/24 20:58 Oxygen Delivery Method Room Air 03/25/24 20:58 Oxygen Flow Rate 0 03/25/24 20:58 Pain Level 3 03/25/24 20:58 Medical Decision Making 33yo F presenting with left hand swelling after being bitten/scratched by her vaccinated cat yesterday evening. Swelling this morning, went to and started on amoxicillin (1 dose so far). Swelling/pain slightly worse this evening especially hurts with movement. Systemically well. Vitals signs reassuring on arrival. On exam she does have small abrasions and lacerations to the dorsal surface of both hands, with swelling on dorsal surface of her right hand and her proximal digits. No palpable foreign bodies and patient without sensation of foreign body. No tenderness over flexor sheaths. Not septic. No indication for labs. Not concerning for flexor tenosynovitits, joint infection, or deep space infection of the hand at this time. Is on appropriate treatment. Slight worsening of symptoms today not unexpected; would anticipate stabilizing after ~24 hours and beginning to improve after ~48 hours of antibiotic treatment. Given tyelnol for pain and splint for comfort (particularly at night). Consi dered XR to evaluate for foriegn body/tooth and discussed with patient; she would prefer to forgo for now rather than wait for XR and read which is not unreasonable as I have a low suspicion for FB or fracture and she states cat's teeth/claws appear intact and has no FB sensation. Strict return precautions were reviewed and the importance of returning should her symptoms worsen tomorrow or not improve the day after. Discharged home to followup with PCP; discharge instructions and return precautions were reviewed with patient who verbalized understanding. All questions were answered and she is in full agreement with the plan. Quality:SDOH Health Related Social Needs: No Data to Display PFSH All Active Problems (Updated 03/25/24 @ 21:46 by Aissatou Walton MD) Cellulitis (Acute) Cat bite (Acute) Atrophic vaginitis (Acute) Thalassemia minor (Acute) Anxiety and depression (Chronic) BMI 50.0-59.9, adult (Acute) Medical History Invasive ductal carcinoma of left breast in female Surgical History H/O breast surgery Social History Smoking/Tobacco Use Status: Never Smoking risk assessment performed?: Yes Alcohol Intake: never Drug use: Never Substance use type: does not use Caregiver/Support person: Yes Foster care: Yes Household members: significant other and foster family Current gender identity: female Do you feel safe at home: Yes Do you feel safe in your relationship?: Yes
[2024-03-25] MEDS: Acetaminophen 500 MG TAB 1000 MG PO (21:45)
--- NOTE | 2024-03-26 10:34 | NUR.NOTE ---
Access chart to get diagnosis information for [facility] billing. Nursing Note:
== END 2024-03-25 22:00 | disposition home or self-care (01) ==
PROVIDERS: Emergency Provider Student in an Organized Health Care Education/Training Program
DX: S60.572A Other superficial bite of hand of left hand, initial encounter (principal); L03.114 Cellulitis of left upper limb; D56.3 Thalassemia minor; W55.01XA Bitten by cat, initial encounter; Y93.89 Activity, other specified; Y92.018 Other place in single-family (private) house as the place of occurrence of the external cause
CPT/HCPCS: 99283

== ENCOUNTER 2024-04-27 14:23 | Outpatient (CLI) | payer MEDICARE, MEDICAID, SELFPAY ==
[2024-04-27 14:27] LABS: Hemoglobin A1C 6.2 % (<5.7)
[2024-04-27 14:39] LABS: ALT 74 U/L (14-59); AST 36 U/L (15-37); Albumin 3.9 g/dL (3.4-5.0); Alkaline Phosphatase 176 U/L (46-116); Anion Gap 12.3 mmol/L (3-11); BUN 14 mg/dL (7-18); Bilirubin, Total 0.51 mg/dL (0.2-1.0); CO2 25.7 mmol/L (21.0-32.0); CREATININE 0.8 mg/dL (0.55-1.02); Calcium 9.7 mg/dL (8.5-10.1); Chloride 105 mmol/L (98-107); Estimated GFR 99.71 (mL/min/1.73m2); Glucose 133 mg/dL (74-106); Sodium 143 mmol/L (136-145); Total Protein 7.9 g/dL (6.4-8.2)
== END 2024-04-27 14:24 | disposition home or self-care (01) ==
LOC: LBO 14:23
PROVIDERS: PCP Nurse Practitioner Family; Visit Provider Nurse Practitioner Family
DX: N39.46 Mixed incontinence (principal); R63.1 Polydipsia
CPT/HCPCS: 36415; 80053; 83036

== ENCOUNTER 2024-05-17 02:25 | Outpatient (CLI) | payer MEDICARE, MEDICAID, SELFPAY ==
[2024-05-17 14:32] LABS: Abs Immature Grans 0.04 10^3/uL (0.0-0.06); Absolute Basophil Count 0.07 10^3/uL (0.0-0.2); Absolute Eosinophil Count 0.32 10^3/uL (0.0-0.7); Absolute Lymphocyte Count 2.82 10^3/uL (1.2-3.4); Absolute Monocyte Count 0.54 10^3/uL (0.1-0.8); Absolute Neutrophil Count 5.73 10^3/uL (1.2-6.7); Basophils % 0.7 %; Eosinophils % 3.4 %; HCT 36.9 % (36.0-46.0); HGB 11.3 g/dL (11.2-15.7); Immature Grans % 0.4 %; Lymphocytes % 29.6 %; MCH 19.1 pg (27.0-33.0); MCHC 30.6 % (32.0-36.0); MCV 62 fL (80-95); MPV 9.9 fL (8.0-11.0); Monocytes % 5.7 %; Neutrophils % 60.2 %; Platelet Count 321 10^3/uL (130-400); RBC 5.91 10^6/uL (3.93-5.22); RDW 17.5 % (11.7-14.6); RDW-SD 36.2 fL; WBC 9.52 10^3/uL (4.4-10.8)
[2024-05-17 14:44] LABS: ALT 68 U/L (14-59); AST 39 U/L (15-37); Albumin 3.6 g/dL (3.4-5.0); Alkaline Phosphatase 179 U/L (46-116); Anion Gap 9.1 mmol/L (3-11); BUN 13 mg/dL (7-18); Bilirubin, Total 0.42 mg/dL (0.2-1.0); CO2 26.9 mmol/L (21.0-32.0); CREATININE 0.8 mg/dL (0.55-1.02); Calcium 9.4 mg/dL (8.5-10.1); Chloride 102 mmol/L (98-107); Estimated GFR 99.71 (mL/min/1.73m2); Glucose 112 mg/dL (74-106); Potassium 3.7 mmol/L (3.5-5.1); Sodium 138 mmol/L (136-145); Total Protein 8.4 g/dL (6.4-8.2)
[2024-05-17 15:16] LABS: Diff Comment Diff Reviewed; Hypochromasia 1+; Microcytosis 2+
[2024-05-17 15:19] LABS: Poikilocytes 1+
[2024-05-17 23:17] LABS: Estradiol <12 pg/mL (See Note)
[2024-05-17 23:23] LABS: FSH 4.4 mIU/mL (See Note)
== END 2024-05-17 02:26 | disposition home or self-care (01) ==
LOC: LBO 02:25
PROVIDERS: PCP Nurse Practitioner Family; Visit Provider Internal Medicine Hematology & Oncology
DX: Z79.899 Other long term (current) drug therapy (principal)
CPT/HCPCS: 36415; 80053; 82670; 83001; 85025

== ENCOUNTER 2024-06-09 16:50 | Outpatient (REF) | payer MEDICARE, MEDICAID, SELFPAY ==
--- NOTE | 2024-06-09 11:00 | PAPFT_PTH ---
PATIENT: Jackie Moraes LOC: [facility] U#:[id number] AGE/SX: 33/F ROOM: RE06/09/[address]: Bartolome Morton DNP : 1990 BED: DIS: 06/09/2024 SPEC #: [id number] RECD: 06/09/24 18:28 STATUS: ANDREA REQ #: [id number] VANITA: 06/09/24 11:[address]: Bartolome Carty DEPT: [facility] Cytology RECD BY: Leilani Lopez ENTERED: 06/09/24 18:29 SP TYPE: PAPFT OTHR DR: Hazel Quigley Tissues: 1 - CX/ENDOCX FOR PAP SMEARS Procedures: PAP THIN PREP/UVM Screening HPV DNA PROBE Comments: [id number] (HPV 16 & 18/45)
== END 2024-06-09 16:51 | disposition home or self-care (01) ==
LOC: LBN 16:50
PROVIDERS: PCP Nurse Practitioner Family; Visit Provider Nurse Practitioner Family
DX: Z12.4 Encounter for screening for malignant neoplasm of cervix (principal)
CPT/HCPCS: 88142; 87624

== ENCOUNTER 2024-08-12 01:06 | Outpatient (CLI) | payer MEDICARE, MEDICAID, SELFPAY ==
[2024-08-12 12:45] LABS: ALT 62 U/L (14-59); AST 32 U/L (15-37); Albumin 3.8 g/dL (3.4-5.0); Alkaline Phosphatase 144 U/L (46-116); Anion Gap 7.9 mmol/L (3-11); BUN 14 mg/dL (7-18); CO2 29.1 mmol/L (21.0-32.0); CREATININE 0.9 mg/dL (0.55-1.02); Calcium 9.1 mg/dL (8.5-10.1); Chloride 106 mmol/L (98-107); Estimated GFR 86.03 (mL/min/1.73m2); Glucose 100 mg/dL (74-106); Sodium 143 mmol/L (136-145); Total Protein 8.2 g/dL (6.4-8.2)
[2024-08-12 23:33] LABS: Estradiol <12 pg/mL (See Note)
[2024-08-13 02:24] LABS: FSH 3.7 mIU/mL (See Note)
== END 2024-08-12 01:07 | disposition home or self-care (01) ==
LOC: LBO 01:06
PROVIDERS: PCP Nurse Practitioner Family; Visit Provider Nurse Practitioner Family
DX: Z85.3 Personal history of malignant neoplasm of breast (principal); C50.212 Malignant neoplasm of upper-inner quadrant of left female breast; Z17.0 Estrogen receptor positive status [ER+]
CPT/HCPCS: 36415; 80053; 82670; 83001

== ENCOUNTER 2024-11-11 00:18 | Outpatient (CLI) | payer MEDICARE, MEDICAID, SELFPAY ==
[2024-11-11 22:10] LABS: Estradiol 14 pg/mL (See Note)
[2024-11-11 22:53] LABS: FSH 3.5 mIU/mL (See Note)
== END 2024-11-11 00:19 | disposition home or self-care (01) ==
LOC: LBO 00:19
PROVIDERS: PCP Nurse Practitioner Family; Visit Provider Nurse Practitioner Family
DX: E28.39 Other primary ovarian failure (principal); Z85.3 Personal history of malignant neoplasm of breast
CPT/HCPCS: 36415; 82670; 83001

== ENCOUNTER 2025-02-10 08:32 | Outpatient (CLI) | payer MEDICARE, MEDICAID, SELFPAY ==
[2025-02-11 22:31] LABS: Estradiol <12 pg/mL (See Note)
[2025-02-13 10:38] LABS: FSH 3.7 mIU/mL (See Note)
== END 2025-02-10 08:33 | disposition home or self-care (01) ==
LOC: LBO 08:33
PROVIDERS: PCP Nurse Practitioner Family; Visit Provider Nurse Practitioner Family
DX: E28.39 Other primary ovarian failure (principal); Z85.3 Personal history of malignant neoplasm of breast
CPT/HCPCS: 36415; 82670; 83001

== ENCOUNTER 2025-04-17 03:24 | Outpatient (CLI) | payer MEDICARE, MEDICAID, SELFPAY ==
--- NOTE | 2025-04-17 | DI.MAMMO_ITS ---
Exam(s) MG MAMMO SCREENING 60 MIN DUR EXAM: MG MAMMO SCREENING 60 MIN DUR CLINICAL HISTORY: Screening, personal h/o malignant neoplasm of breast, Z85.3, TECHNIQUE: Bilateral full field digital CC and MLO mammographic images were obtained with 3D tomosynthesis and utilizing computer aided detection (CAD). COMPARISON: Comparison is made with prior examinations. FINDINGS: Masses/Architectural Distortion: No suspicious masses or areas of architectural distortion are present. The patient is status post left lumpectomy and radiation therapy. Microcalcifications: No suspicious pleomorphic-type are seen. Skin Thickening/Nipple Retraction: None. IMPRESSION: 1. No significant interval change with no specific features of malignancy noted. 2. Unless there is more urgent need, screening mammography is recommended, as per [place] [employer] guidelines. 3. Findings were discussed with the patient on the date of the examination. BI-RADS Category 2 - Benign Findings Breast Density - Category C - The breast are heterogeneously dense, which may obscure small masses. Breast density Category C or D implies that the patient has dense breast tissue. Dense breast tissue can make it harder to find cancer on a mammogram. Dense breast tissue is also associated with an increased risk of breast cancer. This information about the result of the mammogram report was provided to the patient to raise their awareness. Use this report when you speak with the patient about their risks for breast cancer, which includes their family history. At that time, you may recommend additional screening tests (Ultrasound or MRI) as these tests may add significant information. A negative radiographic report should not delay biopsy if a dominant or clinically suspicious mass is present. Up to ten percent of cancers are not identified on mammography. A negative report may reinforce clinical impression. Adenosis and dense breasts may obscure an underlying neoplasm. False positive reports average 6 to 10%. Patient will receive a letter notifying them of these results.
== END 2025-04-17 03:44 ==
LOC: DI 03:25
PROVIDERS: PCP Nurse Practitioner Family; Visit Provider Student in an Organized Health Care Education/Training Program
DX: Z12.31 Encounter for screening mammogram for malignant neoplasm of breast (principal); R92.333 Mammographic heterogeneous density, bilateral breasts
CPT/HCPCS: 77063; 77067

== ENCOUNTER 2025-05-12 15:03 | Outpatient (CLI) | payer MEDICARE, MEDICAID, SELFPAY ==
[2025-05-12 11:09] LABS: ALT 73 U/L (14-59); AST 36 U/L (15-37); Albumin 3.6 g/dL (3.4-5.0); Alkaline Phosphatase 96 U/L (46-116); Anion Gap 8.3 mmol/L (3-11); BUN 16 mg/dL (7-18); Bilirubin, Total 0.4 mg/dL (0.2-1.0); CO2 26.7 mmol/L (21.0-32.0); Calcium 9.4 mg/dL (8.5-10.1); Chloride 105 mmol/L (98-107); Estimated GFR 116.31 (mL/min/1.73m2); Glucose 109 mg/dL (74-106); Potassium 4.1 mmol/L (3.5-5.1); Sodium 140 mmol/L (136-145); Total Protein 8.0 g/dL (6.4-8.2)
[2025-05-12 23:22] LABS: FSH 3.3 mIU/mL (See Note)
== END 2025-05-12 15:04 | disposition home or self-care (01) ==
LOC: LBO 15:04
PROVIDERS: PCP Nurse Practitioner Family; Visit Provider Nurse Practitioner Family
DX: E28.39 Other primary ovarian failure (principal); Z85.3 Personal history of malignant neoplasm of breast
CPT/HCPCS: 36415; 80053; 82670; 83001